=== PATIENT | male | born 1990 | race Caucasian/White ===

== ENCOUNTER 2017-12-22 06:47 | Emergency (ER) | payer BC ==
[2017-12-22] MEDS ORDERED: Cyclobenzaprine 10 MG TAB ONE (07:31)
[2017-12-22] MEDS ORDERED: Ketorolac Tromethamine 60 MG/2 ML VIAL ONE (07:31)
== END 2017-12-22 09:38 | disposition home or self-care (01) ==
LOC: ERS 06:47
DX: S39.012A Strain of muscle, fascia and tendon of lower back, initial encounter (principal); F17.210 Nicotine dependence, cigarettes, uncomplicated; X58.XXXA Exposure to other specified factors, initial encounter
CPT/HCPCS: 96372; J1885